=== PATIENT | female | born 1970 | race Hispanic/Latino ===

== ENCOUNTER 2022-04-05 11:48 | Emergency (ER) | payer BC, SELFPAY ==
[2022-04-05] MEDS ORDERED: Lisinopril 10 MG TAB ONE (12:42)
== END 2022-04-05 12:49 | disposition home or self-care (01) ==
LOC: CSHERS 11:48
DX: I10 Essential (primary) hypertension (principal); E11.9 Type 2 diabetes mellitus without complications; T46.4X6A Underdosing of angiotensin-converting-enzyme inhibitors, initial encounter
CPT/HCPCS: 36416; 93005